=== PATIENT | female | born 1970 | race Caucasian/White ===

== ENCOUNTER 2022-08-05 04:10 | Emergency (ER) | payer BC, OTHER ==
[2022-08-05 04:21] VITALS: BMI 27.1
[2022-08-05] MEDS ORDERED: ACETAMINOPHEN 1000 MG/100 ML BAG IVPB ONE (04:23)
[2022-08-05] MEDS ORDERED: morphine CARPU-JECT 4 MG/1 ML DISP.SYRIN IVPUSH ONE (04:23)
[2022-08-05] MEDS ORDERED: SODIUM CHLORIDE 1,000 ML IV ONE (04:23)
[2022-08-05] MEDS ORDERED: ACETAMINOPHEN INJECTION 100 ML IVPB ONE (04:33)
[2022-08-05] MEDS ORDERED: morphine SULFATE 4 MG/ML VIAL ONE ×2 (04:33→06:01)
[2022-08-05 06:24] LABS: HEMATOCRIT 24.3 % (32.4-45.2); HEMOGLOBIN 7.8 GM/dL (10.7-15.3); MCH 20.1 pg (25.7-33.7); MCHC 31.9 g/dl (32.0-36.0); MEAN PLT VOLUME 9.1 fl (7.5-11.1); PLATELET COUNT 280 10^3/uL (134-434); RBC 3.86 M/mm3 (3.60-5.2); RDW 19.8 % (11.6-15.6); WHITE BLOOD COUNT 10.6 K/mm3 (4.0-10.0)
[2022-08-05 06:35] LABS: EPI CELLS >36 /uL (0-25.1); HYALINE CASTS 2 /uL (0-3.1); PH,URINE 5.5 (5.0-8.0); URINE APPEARANCE CLEAR; URINE BACTERIA 574 /uL (0-1359); URINE BILIRUBIN 2+ (NEGATIVE); URINE COLOR DK YELLOW; URINE GLUCOSE (UA) NEGATIVE (NEGATIVE); URINE KETONE 4+ (NEGATIVE); URINE LEUK ESTERASE TRACE (NEGATIVE); URINE NITRITE NEGATIVE (NEGATIVE); URINE PROTEIN TRACE (NEGATIVE); URINE RBC 38 /uL (0-23.9); URINE WBC 59 /uL (0-25.8)
[2022-08-05 06:37] LABS: INR 1.1 (0.83-1.09); PROTHROMBIN TIME (PATIENT) 12.7 SEC (9.7-13.0)
[2022-08-05 06:38] LABS: CHLORIDE 99 mmol/L (98-107); POTASSIUM 3.9 mmol/L (3.5-5.1); SODIUM 132 mmol/L (136-145)
[2022-08-05 06:40] LABS: CALCIUM 8.7 mg/dL (8.5-10.1)
[2022-08-05 06:41] LABS: ALBUMIN 3.8 g/dl (3.4-5.0); ANION GAP 8 MMOL/L (8-16); BLOOD UREA NITROGEN 9.8 mg/dL (7-18); CO2 24 mmol/L (21-32); GLUCOSE,RANDOM 138 mg/dL (74-106); LIPASE 126 U/L (73-393)
[2022-08-05 06:44] LABS: CREATININE 0.5 mg/dL (0.55-1.3); SGOT/AST 985 U/L (15-37); SGPT/ALT 365 U/L (13-61)
[2022-08-05 06:45] LABS: BILIRUBIN,TOTAL 1.6 mg/dL (0.2-1)
[2022-08-05 06:46] LABS: TOT PROT 7.7 g/dl (6.4-8.2)
[2022-08-05 06:47] LABS: ALK PHOS 550 U/L (45-117)
[2022-08-05] MEDS ORDERED: CEFTRIAXONE 2 GM-D5W BAG 2 GM/50 ML BAG IVPB ONE (08:49)
[2022-08-05] MEDS ORDERED: PIPERACILLIN/TAZOB 3.375 GM 3.375 GM in DEXTROSE 5%-WATER - 50 ML IVPB ONE (08:56)
[2022-08-05] MEDS ORDERED: PIPERACILLIN/TAZOBACTAM 3.375 GM VIAL IVPB ONE (08:59)
[2022-08-05 09:06] LABS: INR 1.1 (0.83-1.09); PROTHROMBIN TIME (PATIENT) 12.8 SEC (9.7-13.0)
[2022-08-05] MEDS ORDERED: MIDAZOLAM HCL 2 MG/2 ML SINGLE DOSE VIAL ONE (11:38)
[2022-08-05] MEDS: MIDAZOLAM HCL 2 MG/2 ML SINGLE DOSE VIAL IVPUSH ONE ×2 (11:39→11:48)
[2022-08-05] MEDS ORDERED: LACTATED RINGERS SOLUTION 1,000 ML IV SCH (11:45)
[2022-08-05 12:36] VITALS: BP 123/77; PULSE 92; RESP 18; TEMP 98
[2022-08-05] MEDS ORDERED: HEPARIN NA (PORCINE) 5,000 UNITS/ML 1ML VIAL SQ SCH (14:00)
[2022-08-05] MEDS ORDERED: PIPERACILLIN/TAZOB 3.375 GM 3.375 GM in DEXTROSE 5%-WATER - 50 ML IVPB SCH (18:00)
== END 2022-08-05 13:07 | disposition short-term general hospital (02) ==
LOC: FER 04:10
PROC: 3E03329 Introduction of Other Anti-infective into Peripheral Vein, Percutaneous Approach (ICD-10-PCS; principal; 2022-08-05)
PROC: 3E033NZ Introduction of Analgesics, Hypnotics, Sedatives into Peripheral Vein, Percutaneous Approach (ICD-10-PCS; 2022-08-05)
PROC: 3E033GC Introduction of Other Therapeutic Substance into Peripheral Vein, Percutaneous Approach (ICD-10-PCS; 2022-08-05)
PROC: 3E033GC Introduction of Other Therapeutic Substance into Peripheral Vein, Percutaneous Approach (ICD-10-PCS; 2022-08-05)
PROC: 3E033GC Introduction of Other Therapeutic Substance into Peripheral Vein, Percutaneous Approach (ICD-10-PCS; 2022-08-05)
PROC: 3E0337Z Introduction of Electrolytic and Water Balance Substance into Peripheral Vein, Percutaneous Approach (ICD-10-PCS; 2022-08-05)
DX: R10.11 Right upper quadrant pain (principal); K80.80 Other cholelithiasis without obstruction; Z20.822 Contact with and (suspected) exposure to COVID-19
CPT/HCPCS: 0241U-QW; 36415; 74019-TC-FY; 76705-TC; 80053; 81003; 82550; 83605; 83690; 84484; 84703; 85027; 85610; 86850; 86900; 86901; 99291

== ENCOUNTER 2022-08-12 15:16 | Observation (INO) | payer BC ==
[2022-08-12] MEDS ORDERED: morphine CARPU-JECT 8 MG/1 ML DISP.SYRIN IVPUSH ONE (15:58)
[2022-08-12] MEDS ORDERED: morphine SULFATE 4 MG/ML VIAL ONE ×4 (16:05→23:49)
[2022-08-12 16:26] LABS: PROTHROMBIN TIME (PATIENT) 11.6 SEC (9.7-13.0)
[2022-08-12 16:29] LABS: ACTIVATED PTT 32.4 SECONDS (25.2-36.5)
[2022-08-12 16:32] LABS: HEMATOCRIT 32.3 % (32.4-45.2); HEMOGLOBIN 10.2 G/dL (10.7-15.3); MCH 22.2 pg (25.7-33.7); MCHC 31.7 g/dl (32.0-36.0); MEAN PLT VOLUME 8.7 fl (7.5-11.1); PLATELET COUNT 516.2 10^3/uL (134-434); RBC 4.62 10^6/uL (3.60-5.2); RDW 25.5 % (11.6-15.6); WHITE BLOOD COUNT 18.8 10^3/uL (4.0-10.8)
[2022-08-12 16:43] LABS: ALBUMIN 2.7 g/dl (3.4-5.0); BILIRUBIN,TOTAL 1.9 mg/dl (0.2-1); CALCIUM 8.4 mg/dl (8.5-10); CREATININE 0.4 mg/dl (0.55-1.3); TOT PROT 6.6 g/dl (6.4-8.2)
[2022-08-12 16:48] LABS: POTASSIUM 5.1 mmol/L (3.5-5.1)
[2022-08-12 17:34] LABS: PLATELET ESTIMATE INCREASED
[2022-08-12] MEDS ORDERED: ONDANSETRON 4 MG/2 ML VIAL IVPB ONE (19:33)
[2022-08-12] MEDS ORDERED: morphine CARPU-JECT 4 MG/1 ML DISP.SYRIN IVPUSH ONE ×2 (19:33→22:32)
[2022-08-12] MEDS ORDERED: ONDANSETRON 4 MG/2 ML VIAL ONE (19:40)
[2022-08-12] MEDS ORDERED: LORazepam 2 MG/ML SDV VIAL IVPUSH ONE (19:45)
[2022-08-12] MEDS ORDERED: PIPERACILLIN/TAZOBACTAM 3.375 GM VIAL IVPB ONE (22:26)
[2022-08-12] MEDS ORDERED: PIPERACILLIN/TAZOB 3.375 GM 3.375 GM in DEXTROSE 5%-WATER - 50 ML IVPB ONE (22:27)
[2022-08-12 23:26] VITALS: BMI 30.9
[2022-08-12] MEDS ORDERED: morphine SULFATE 4 MG/ML VIAL IVPUSH ONE (23:47)
[2022-08-13] MEDS ORDERED: ONDANSETRON 4 MG/2 ML VIAL IVPUSH PRN (02:00)
[2022-08-13] MEDS ORDERED: PIPERACILLIN/TAZOB 3.375 GM 3.375 GM in DEXTROSE 5%-WATER - 50 ML IVPB SCH ×4 (03:00→18:00)
[2022-08-13] MEDS ORDERED: SODIUM PHOSPHATE/NA BIPHOS 133 ML ENEMA RC ONE (03:30)
[2022-08-13] MEDS ORDERED: SODIUM CHLORIDE 1,000 ML IV SCH (06:00)
[2022-08-13] MEDS: ACETAMINOPHEN 1000 MG/100 ML BAG IVPB SCH ×2 (08:05→14:44)
[2022-08-13 08:20] LABS: ALBUMIN 2.1 g/dl (3.4-5.0); BILIRUBIN,TOTAL 0.7 mg/dl (0.2-1); CREATININE 0.3 mg/dl (0.55-1.3); MAGNESIUM 1.7 mg/dL (1.8-2.4); PHOSPHOROUS 5.2 mg/dl (2.5-4.9); POTASSIUM 3.6 mmol/L (3.5-5.1); TOT PROT 5.8 g/dl (6.4-8.2)
[2022-08-13] MEDS: POLYETHYLENE GLYCOL (HEALTHYLAX) 3350 17 GM PACKET PO SCH ×2 (08:42→21:29)
[2022-08-13] MEDS ORDERED: AMPICILLIN NA/SULBACTAM NA 3 GM in SODIUM CHLORIDE 100 ML IVPB SCH (09:00)
[2022-08-13 09:14] VITALS: RESP 18
[2022-08-13] MEDS ORDERED: MAGNESIUM 1GM/D5W 100ML - 100 ML IVPB IVPB ONE (10:00)
[2022-08-13] MEDS: KETOROLAC TROMETHAMINE 30 MG/1 ML VIAL IVPUSH PRN ×2 (10:07→16:55)
[2022-08-13 10:14] LABS: HEMATOCRIT 29.3 % (32.4-45.2); HEMOGLOBIN 8.9 GM/dL (10.7-15.3); MCHC 30.3 g/dl (32.0-36.0); MEAN CELL VOLUME 66.2 fl (80-96); MEAN PLT VOLUME 8.1 fl (7.5-11.1); PLATELET COUNT 531 10^3/uL (134-434); RBC 4.42 M/mm3 (3.60-5.2); RDW 25.8 % (11.6-15.6)
[2022-08-13 10:20] LABS: WHITE BLOOD COUNT 33.6 K/mm3 (4.0-10.0)
[2022-08-13] MEDS ORDERED: VANCOMYCIN 1 GM/200 ML PREMIX BAG (RESTRICTED TO ID ONLY) IVPB SCH ×2 (10:45→11:00)
[2022-08-13 10:54] LABS: ANISOCYTOSIS 3+; MACROCYTOSIS 0
[2022-08-13] MEDS: GABAPENTIN 100 MG CAPSULE PO SCH ×2 (14:45→21:29)
[2022-08-13] MEDS ORDERED: PIPERACILLIN/TAZOB 4.5 GM 4.5 GM in DEXTROSE 5%-WATER 100 ML IVPB SCH (18:00)
[2022-08-13 22:42] VITALS: BP 103/51; PULSE 63; TEMP 99.1
== END 2022-08-13 22:40 | disposition short-term general hospital (02) ==
LOC: FER 15:16 → FM/S 22:47 → INTOOBSV 22:47
PROVIDERS: ADMIT Internal Medicine; ATTEND Internal Medicine
PROC: 3E03329 Introduction of Other Anti-infective into Peripheral Vein, Percutaneous Approach (ICD-10-PCS; principal; 2022-08-12)
PROC: 3E033NZ Introduction of Analgesics, Hypnotics, Sedatives into Peripheral Vein, Percutaneous Approach (ICD-10-PCS; 2022-08-12)
PROC: 3E0333Z Introduction of Anti-inflammatory into Peripheral Vein, Percutaneous Approach (ICD-10-PCS; 2022-08-12)
PROC: 3E033GC Introduction of Other Therapeutic Substance into Peripheral Vein, Percutaneous Approach (ICD-10-PCS; 2022-08-12)
PROC: 3E0337Z Introduction of Electrolytic and Water Balance Substance into Peripheral Vein, Percutaneous Approach (ICD-10-PCS; 2022-08-12)
DX: R10.13 Epigastric pain (principal); R78.81 Bacteremia; E87.1 Hypo-osmolality and hyponatremia; D72.829 Elevated white blood cell count, unspecified; Z98.84 Bariatric surgery status; E66.9 Obesity, unspecified; G89.18 Other acute postprocedural pain; Z68.31 Body mass index [BMI] 31.0-31.9, adult; Z87.891 Personal history of nicotine dependence; Z90.49 Acquired absence of other specified parts of digestive tract
CPT/HCPCS: 36415; 71045-TC-FY; 74177-TC; 80053; 81003; 83735; 84100; 85025; 85610; 85730; 86850; 86900; 86901; 87040; 87086; 87186; 87635; 96361; 96365; 96367; 96375; 96376; 97116-GP; 97161-GP; 99285-25; G0378; Q9967